=== PATIENT | male | born 1965 | race Caucasian/White ===

== ENCOUNTER → 2020-03-09 11:46 | Outpatient (BNVA) | payer BC, SELFPAY | PROVIDERS: Visit Provider Specialist | DX: M79.641 Pain in right hand (principal); M79.642 Pain in left hand; R20.0 Anesthesia of skin; R20.2 Paresthesia of skin | CPT/HCPCS: 95910 ==

== ENCOUNTER → 2021-02-09 10:07 | Outpatient (BNVA) | payer BC, SELFPAY | PROVIDERS: PCP Nurse Practitioner Family; Referring Provider Nurse Practitioner Family; Visit Provider Urology | DX: R79.89 Other specified abnormal findings of blood chemistry (principal); N52.9 Male erectile dysfunction, unspecified | CPT/HCPCS: 81003; 84403 ==

== ENCOUNTER 2021-05-25 07:21 | Outpatient (CLI) | payer BC, SELFPAY ==
[2021-05-25 07:40] VITALS: BMI 27.8
--- NOTE | 2021-05-25 08:30 | ECG_ITS ---
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 Baseline heart rate was 77 beats per minute. Baseline blood pressure was 126/95 millimeters of mercury. Target heart rate was 162 beats per minute. Maximum heart rate achieved was 139, which was 85 % of the target heart rate. Maximum blood pressure was 182/119 millimeters of mercury. Total exercise time was 5 minutes 54 seconds. Maximum METs achieved was 7.0, maximum VO2 was 24.5. The reason for ending the test was maximum effort achieved. The patient complained of shortness of breath during the stress test, which then resolved at the end of the test. ELECTROCARDIOGRAM: BASELINE: Showed sinus rhythm, normal axis, no significant ST-T changes at the baseline noted. EXERCISE: At the peak exercise level, no significant ST-T changes suggestive of ischemia noted. RECOVERY: During the recovery period, heart rate dropped appropriately. PVCs noted, no significant ST-T changes in the recovery suggestive of ischemia noted. CONCLUSION: 1. Exercise capacity fair. 2. Heart rate response was appropriate. 3. Blood pressure response was appropriate. 4. Symptoms not suggestive of ischemia. 5. Electrocardiogram portion of the stress test was not suggestive of ischemia. 6. Nuclear scan will be documented separately. Electronically Signed On 05-26-2021 21:19:14 CDT by AZUL HAYNES [id number]
--- NOTE | 2021-05-25 08:31 | NMCV_ITS ---
NM wing perf SPECT r/s* [id number] Ramakrishna Valdivia Age: 56 Gender: M : 1965 Exam Date: 05/25/2021 09:08 Ordering Phys: Aleks Barkley NP Technologist: ALONDRA Moody Exam Location: [facility] Indications: DYSPNEA ON EXERTION STRESS TEST Please see separate stress test report in [facility] for full findings IMAGE PROTOCOL Rest/Stress 1 Exercise Day Radiopharmaceutical Dose (mCi) Administration Site Administered by Rest: Tc-99m 10.7 IV ALONDRA Garcia Sestamibi Stress:Tc-99m 32.7 IV ALONDRA Garcia Sestamibi Rest: 25-May-2021 60 Discovery 630 Stress: 25-May-2021 30 Discovery 630 Radiopharmaceutical was injected at 85 % maximum heart rate. Images obtained in supine and prone position. SPECT RESULTS Technical Quality: Excellent Raw Data Analysis: Normal Image Corrections: No attenuation or motion correction applied Summed Stress Score: 0 Summed Rest Score: 1 Summed Difference Score: 0 PERFUSION FINDINGS Medium-sized area of persistent decrease tracer uptake noted in basal to mid inferior wall in the absence of wall motion abnormality could be an artifact. FUNCTIONAL RESULTS (calculated via Gated SPECT) Stress Image LV EF (%): 80 Stress EDV (mL):88 TID: 1.03 Stress ESV (mL):18 Rest Image LV EF (%): 80 FUNCTIONAL FINDINGS: There is normal left ventricular systolic function. IMPRESSIONS This study is negative for ischemia. EKG segment will be documented separately. Connie Bledsoe MD (Electronically Signed) Final Date: 25 May 2021 13:21 S
[2021-05-25 09:59] VITALS: BP 138/89; PULSE 94
== END 2021-05-25 07:22 | disposition home or self-care (01) ==
LOC: CDL 07:24
PROVIDERS: PCP Nurse Practitioner Family; Visit Provider Nurse Practitioner Family
DX: R06.09 Other forms of dyspnea (principal)
CPT/HCPCS: 78452; 93017; A9500

== ENCOUNTER → 2021-10-17 15:35 | Outpatient (BNVA) | payer BC, SELFPAY | PROVIDERS: PCP Nurse Practitioner Family; Visit Provider Urology | DX: R79.89 Other specified abnormal findings of blood chemistry (principal) | CPT/HCPCS: 81003; 84403 ==

== ENCOUNTER 2022-03-14 09:51 | Outpatient (CLI) | payer BC, SELFPAY ==
--- NOTE | 2022-03-14 10:16 | XRR_ITS ---
PROCEDURE INFORMATION: Exam: XR Lumbosacral Spine Exam date and time: 03/14/2022 10:17 AM Age: 57 years old Clinical indication: Low back pain; Patient HX: No known injury; Additional info: Acute low back pain TECHNIQUE: Imaging protocol: Radiologic exam of the lumbosacral spine. Views: 4 or 5 views. COMPARISON: CT kidney stone [id number] 10/02/2016 7:29 PM FINDINGS: Bones/joints: No fracture, malalignment or acute abnormalities are seen. Chronic degenerative changes are present in the lower lumbar facet joints with narrowing sclerosis and mild hypertrophy. There is mild narrowing of the L5-S1 disc space. Soft tissues: Unremarkable. XR/XR lumbar spine min 4V [id number] IMPRESSION: Chronic degenerative changes. No acute abnormality.
== END 2022-03-14 09:52 | disposition home or self-care (01) ==
LOC: RAD 09:52
PROVIDERS: PCP Nurse Practitioner Family; Visit Provider Nurse Practitioner Family
DX: M54.50 Low back pain, unspecified (principal)
CPT/HCPCS: 72110

== ENCOUNTER 2022-04-17 09:57 | Outpatient (CLI) | payer BC, SELFPAY ==
--- NOTE | 2022-04-17 10:17 | MR_ITS ---
WS: [id number] MRI LUMBAR SPINE NONCONTRAST HISTORY: LOW BACK PAIN, ACUTE COMPARISON: 11/24/2008 and 03/14/2022 TECHNIQUE: Sagittal and axial multisequence imaging is submitted. Moderate increase in thoracic kyphosis. Degenerative disc disease and osteophytosis in the cervical a nd thoracic spine. No high-grade cord compression. Normal lumbar alignment. No fracture. Small amount of marrow edema in the LEFT lateral L5 inferior en dplate. Mild disc space narrowing and desiccation throughout the lumbar spine. Conus terminates normally at L1-2 disc level. Disc protrusion on the LEFT at T11-T12 is no longer present. L1-L2: Mild annular disc bulge. No stenosis. Mild facet arthritis. L2-L3: Mild annular disc bulge. No stenosis. Mild facet arthritis. L3-L4: Mild bilateral facet arthritis, slightly greater on the RIGHT. No stenosis. L4-L5: Mild annular disc bulging with no focal disc protrusion. Mild bilateral facet joint arthritis, RIGHT greater than LEFT. No significant stenosis. L5-S1: Moderate diffuse annular disc bulging. Disc bulging has progressed since the prior study. More focal disc protrusion is broad-based extending into the LEFT subarticular recess and foramen. There is contact on the LEFT L5 and S1 nerve roots. Disc bulges into the RIGHT foramen with only mild conta ct on the RIGHT L5 nerve root. Moderate bilateral facet joint arthritis contributing to the foraminal narrowing. Nerve roots are becoming clumped within the periphery of the thecal sac. MR/MR lumbar spine wo con* [id number] IMPRESSION: 1. Mild progression of degenerative disc disease and facet arthritis since 200 9. 2. Diffuse moderate diffuse annular disc bulging at L5-S1 with new broad-based disc protrusion extending into the LEFT subarticular recess and foramen causin g stenosis and encroachment upon the LEFT L5 and S1 nerve roots. 3. Bilateral moderate facet joint arthritis at L5-S1 with mild encroachment up on the RIGHT L5 nerve root at L5-S1. 4. Mild bilateral facet joint arthritis, RIGHT greater than LEFT at L4-5.
== END 2022-04-17 09:58 | disposition home or self-care (01) ==
PROVIDERS: PCP Nurse Practitioner Family; Visit Provider Nurse Practitioner Family
DX: M54.50 Low back pain, unspecified (principal)
CPT/HCPCS: 72148

== ENCOUNTER → 2022-06-27 13:53 | Outpatient (BNVA) | payer BC, SELFPAY | PROVIDERS: PCP Nurse Practitioner Family; Visit Provider Physician Assistant | DX: M47.27 Other spondylosis with radiculopathy, lumbosacral region (principal) | CPT/HCPCS: 72110 ==

== ENCOUNTER 2022-07-20 10:47 | Emergency (ER) | payer BC, SELFPAY ==
[2022-07-20] VITALS (23 sets, daily range): BP systolic 88–146; BP diastolic 65–97; PULSE 90–102; RESP 15–26; TEMP 36.3; O2SAT 86–98; BMI 30.4
--- NOTE | 2022-07-20 11:21 | W.ED.EXTPRO ---
HPI - Extremity Problem General: Chief complaint: Extremity Injury, Lower Stated complaint: right foot injury Time Seen by Provider: 07/20/22 11:21 History of Present Illness: Mr. Valdivia is a 57-year-old 57-year-old gentleman without significant history presenting to the emergency department due to fall with ankle injury. He reports being at his baseline health yesterday and does not recall exactly what happened. 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 He does not recall getting into the house but woke up with recollection of being on the floor with ankle pain. This was last night. He has been unable to ambulate since that time. He has moderate to severe intensity pain moving his right ankle. Obvious deformity and external rotation noted. Denies any numbness or tingling. Denies frequent history of syncope. No other specific changes in health, exacerbating, or alleviating factors identified. Onset (ago): hour(s) Pain Consistency: constant Location: right and lower extremity Quality: stabbing, aching and sharp Radiation: none Relieving factors: immobilization Exacerbating factors: range of motion, weight bearing, walking and palpation Associated symptoms: Reports no associated symptoms Review of Systems General: Reports: 10 or more systems reviewed and unremarkable except in HPI and below PFSH ED PFSH: Medical History COPD (chronic obstructive pulmonary disease) Erectile dysfunction Hyperlipidemia Hypertension Hypothyroidism Low testosterone Family History Mother , AT AGE 69 LUNG CANCER/KIDNEY/BRAIN TUMOR Cancer Father CAD (coronary artery disease) Other Diabetes Social History Smoking and tobacco status: former smoker Alcohol intake: current Alcohol intake frequency: few times a month Marital status: Current occupational status: employed History of recent travel: No Physical Exam Const: COMMON NORMALS: alert GENERAL APPEARANCE: cooperative and well developed HENMT: COMMON NORMALS: normocephalic HEAD & SCALP: normocephalic OTHER: Mild abrasion without active bleeding to left forehead. No hines signs or raccoon eyes. No otorrhea or rhinorrhea. Jaw alignment normal. Dentition baseline. No obvious bony step-offs. No septal hematoma. No evidence of ocular entrapment. Eye: COMMON NORMALS: conjunctivae normal CONJUNCTIVA: Yes conjunctivae normal SCLERA: sclerae normal Neck/C-Spine: COMMON NORMALS: supple GENERAL: Yes trachea midline Resp: COMMON NORMALS: clear to auscultation bilaterally EFFORT & INSPECTION: Yes able to speak in complete sentences AUSCULTATION: clear to auscultation bilaterally Cardio: COMMON NORMALS: regular rate and regular rhythm RATE: regular rate RHYTHM: regular rhythm GI: COMMON NORMALS: Soft to palpation PALPATION: Yes Soft to palpation and No Tenderness to palpation present (GI) Extremity: NARRATIVE EXTREMITY EXAM: Obvious external rotation deformity to the right ankle with hematoma/contusion/ecchymosis. Cap refills present, due to swelling diminished palpable pulses DP PT. Patient reports inability to move toes, sensory intact. There are overlying skin changes without luis acute fracture. GENERAL: Yes normal exam except as noted and No edema Neuro: COMMON NORMALS: moves all extremities SENSORIUM/ORIENTATION: Yes alert and No Orientation impaired Psych: COMMON NORMALS: mental status grossly normal and Normal thought process present THOUGHT PROCESS: Normal thought process present Procedures Orthopedic Fracture Reduction Fracture #1: Time Out Performed: Yes Side: right Fracture Reduction Location: tibia and fibula Analgesia: procedural sedation Technique: direct manipulation Post Reduction X-rays Demonstrate: acceptable reduction Post-reduction neuro exam: intact Post-reduction vascular exam: intact Splint Applied: Yes Patient Tolerated Procedure: well and no complications Orthopedic Joint Reduction Joint #1: Time Out Performed: Yes Side: right Joint Reduction Location: ankle Analgesia: procedural sedation Technique used: direct manipulation Post-reduction neuro exam: intact Post-reduction vascular: intact Post Reduction X-Ray Obtained: Yes Post Reduction X-Ray Results: reduced Splint Applied: Yes Patient Tolerated Procedure: well and no complications Procedural Sedation ASA Class: II Time of Last PO Intake: 08:00 Preparation: high school home economics teacher applied, pulse oximeter, supplemental O2 applied, suction/airway equipment at bedside and IV secured IV Propofol dose (mg): 150 Patient Tolerated Procedure: well and no complications Complications: none Interventions: oxygen applied and airway repositioned Course Vital Signs: Vital signs: Vital Signs Temperature 97.4 F L 07/20/22 11:12 Pulse Rate 98 07/20/22 15:25 Respiratory Rate 16 07/20/22 15:25 Blood Pressure 108/74 07/20/22 15:25 Pulse Oximetry 95 07/20/22 15:25 Oxygen Delivery Me thod 07/20/22 11:12 MDM - Extremity (Nontraumatic) Medical Decision Making 57-year-old gentleman presenting due to fall today. Physical exam performed and most notable for finding of obvious ankle injury mental status is normal with GCS 15. X-ray with fracture dislocation of ankle. Patient consented for procedural sedation and closed reduction. Procedure performed as above, patient tolerated procedure well with intact CMS after procedure/splinting. Given loss of consciousness and active amnesia immediately warranted. CT head with acute small right subdural hematoma without mass-effect as well as subdural blood on the falx and tentorium. Cervical spine without acute fracture. EKG notable for sinus rhythm, no STEMI. Labs notable for minimal leukocytosis, normal hemoglobin. Metabolic end with mild hyponatremia. Delta troponin at 2 hours is negative. Given intracranial hemorrhage patient requires evaluation by trauma service and neurosurgery. The results of ED evaluation were discussed with the patient including plan for transfer due to requirement for level of care not available if discharged to prevent significant worsening/deterioration. Patient agreeable with plan. Discussed with Dr Carpenter at [facility] in [facility] and patient was accepted as a transfer to the ED. He left the emergency department in satisfactory condition. Medical Records I reviewed the patient's medical records. Lab Data I reviewed the patient's lab results. 07/20/22 11:53 07/20/22 11:53 Radiology Impressions Chest X-Ray 07/20/22 11:34 IMPRESSION: 1. No acute cardiopulmonary finding. Tibia/Fibula X-Ray 07/20/22 11:34 IMPRESSION: 1. Talotibial dislocation with displaced distal fibular fracture as indicated above. Ankle X-Ray 07/20/22 12:35 IMPRESSION: 1. Reduction of talotibial dislocation as noted above. 2. Improved fracture position of the fractured lower fibula as noted above. There is still some displacement of the fracture. Cervical Spine CT 07/20/22 13:06 IMPRESSION: 1. No acute cervical spine fracture. 2. Multilevel facet joint arthritis. Most significant at C4-5 and C5-6. Head CT 07/20/22 13:06 IMPRESSION: 1. Acute, small RIGHT subdural hematoma without significant mass effect. 2. There is additional subdural blood along the interhemispheric falx and over the tentorium. 3. No intraventricular blood. 4. No midline shift or mass effect. Notified Dedrick Moore MD at 07/20/2022 1:57 PM. Laboratory Results WBC 11.3 10^3/uL (4.0-10.0) H 07/20/22 11:53 RBC 4.36 10^6/uL (4.1-5.3) 07/20/22 11:53 Hgb 14.4 g/dL (11.7-16.6) 07/20/22 11:53 Hct 42.1 % (42.0-52.0) 07/20/22 11:53 MCV 96.6 fl (80-94) H 07/20/22 11:53 MCH 33.0 pg (28.0-34.0) 07/20/22 11:53 MCHC 34.2 g/dL (30.0-36.0) 07/20/22 11:53 RDW 14.0 % (12.1-15.1) 07/20/22 11:53 Plt Count 267 10^3/cmm (130-400) 07/20/22 11:53 MPV 9.9 fL (7.4-10.4) 07/20/22 11:53 Neut % (Auto) 82.1 % 07/20/22 11:53 Lymph % (Auto) 10.8 % 07/20/22 11:53 Mason % (Auto) 6.5 % 07/20/22 11:53 Eos % (Auto) 0.2 % 07/20/22 11:53 Baso % (Auto) 0.2 % 07/20/22 11:53 Neut # (Auto) 9.29 10^3/uL (1.8-7.7) H 07/20/22 11:53 Lymph # (Auto) 1.2 10^3/uL (0.8-4.8) 07/20/22 11:53 Mason # (Auto) 0.7 10^3/uL (0.2-0.9) 07/20/22 11:53 Eos # (Auto) 0.0 10^3/uL (0.0-0.8) 07/20/22 11:53 Baso # (Auto) 0.0 10^3/uL (0.0-0.1) 07/20/22 11:53 Nucleated RBC % (auto) 0 % 07/20/22 11:53 Nucleated RBCs # 0.0 /100WBC 07/20/22 11:53 Sodium 133 mmol/L (136-145) L 07/20/22 11:53 Potassium 4.6 mmol/L (3.5-5.1) 07/20/22 11:53 Chloride 97 mmol/L (98-107) L 07/20/22 11:53 Carbon Dioxide 22 mmol/L (22-29) 07/20/22 11:53 Anion Gap 18.6 (5-19) 07/20/22 11:53 BUN 10 mg/dL (6-20) 07/20/22 11:53 Creatinine 0.8 mg/dL (0.7-1.2) 07/20/22 11:53 GFR Calculation 98.9 mL/min (90-130) 07/20/22 11:53 Glucose 85 mg/dL (65-115) 07/20/22 11:53 Calculated Osmolality 274 mOsm/kg (285-295) L 07/20/22 11:53 Calcium 9.0 mg/dL (8.5-10.5) 07/20/22 11:53 Total Bilirubin 0.5 mg/dL (0.15-1.2) 07/20/22 11:53 AST 26 U/L (0-40) 07/20/22 11:53 ALT 23 U/L (0-41) 07/20/22 11:53 Alkaline Phosphatase 63 U/L (40-130) 07/20/22 11:53 Troponin T Baseline 7 ng/L (0-15) 07/20/22 11:53 Troponin T 120 Minute 6.00 ng/L (0-15) 07/20/22 13:00 Delta Troponin T -1.0 ABS# (0-10) L 07/20/22 13:00 Total Protein 6.8 g/dL (6.6-8.7) 07/20/22 11:53 Albumin 4.2 g/dL (3.5-5.2) 07/20/22 11:53 Globulin 2.6 g/dL (1.3-4.6) 07/20/22 11:53 TSH 0.64 uIU/mL (0.27-4.20) 07/20/22 11:53 Discharge Plan Discharge Patient Disposition: Xfer Short-Term Hosp Clinical Impression: Fall, Closed head injury with loss of consciousness of unknown duration, Fracture dislocation of ankle, Acute subdural hematoma Condition: Stable Referrals: Aleks Barkley NP [Primary Care Provider] - Coding Level of Care Code ED Shipping Specialist for Chg Fwd Exam Comprehensive
--- NOTE | 2022-07-20 11:34 | XR_ITS ---
WS: [email or web address] Exam: XR tibia fibula RT 2V [id number] Date/Time of Exam: 07/20/2022 11:51 AM Reason For Exam: fall There is anterior and medial dislocation of the distal tibia. There is a displaced oblique fracture o f the lower fibula with the posterior displacement and angulation of the lower fragment and side-to-s bobo apposition. No other fractures are identified. The remainder of the tibia and fibula are intact. XR/XR tibia fibula RT 2V [id number] IMPRESSION: 1. Talotibial dislocation with displaced distal fibular fracture as indicated a mateusz.
--- NOTE | 2022-07-20 11:34 | XR_ITS ---
WS: [email or web address] Exam: XR ankle RT min 3V* [id number] Date/Time of Exam: 07/20/2022 11:51 AM Reason For Exam: fall, deformity There is anterior medial dislocation of the tibia upon the talar dome. There is an oblique fracture o f the distal fibula with the anterior displacement of the fibular shaft and overriding. Soft tissue s welling about the ankle. No other acute fractures are seen. XR/XR ankle RT min 3V* [id number] IMPRESSION: 1. Anterior medial dislocation of the distal tibia. 2. Angulated displaced fracture of the lower fibula as noted above.
--- NOTE | 2022-07-20 11:34 | XR_ITS ---
WS: [email or web address] Exam: XR chest 1V portable [id number] Date/Time of Exam: 07/20/2022 11:51 AM Reason For Exam: syncope Comparison 06/19/2016. The lungs are fully expanded and clear. Normal cardiomediastinal silhouette. Bony structures are inta ct. No pleural effusions. XR/XR chest 1V portable [id number] IMPRESSION: 1. No acute cardiopulmonary finding.
--- NOTE | 2022-07-20 11:44 | ECG_ITS ---
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 Measurements Intervals [place] Rate: 101 P: 37 WV: 128 QRS: 28 QRSD: 88 T: 29 QT: 329 QTc: 427 Interpretive Statements SINUS TACHYCARDIA No previous ECG available for comparison Electronically Signed On 07-20-2022 12:55:49 WIND TURBINE MECHANICAL ENGINEER by Panfilo Vo M.D. [email or web address]
[2022-07-20] MEDS: morphine 4 mg/mL SDV 1 mL IVP (11:50)
[2022-07-20] MEDS: ondansetron 2 mg/ML SDV 2 mL 4 MG IVP (11:51)
[2022-07-20 12:00] LABS: Basophils % 0.2 %; Eosinophils % 0.2 %; Hematocrit 42.1 % (42.0-52.0); Hemoglobin 14.4 g/dL (11.7-16.6); Lymphocytes # 1.2 10^3/uL (0.8-4.8); Lymphocytes % 10.8 %; Mean Corpuscular HGB Conc 34.2 g/dL (30.0-36.0); Mean Corpuscular Volume 96.6 fl (80-94); Mean Platelet Volume 9.9 fL (7.4-10.4); Monocytes # 0.7 10^3/uL (0.2-0.9); Monocytes % 6.5 %; Neutrophils # 9.29 10^3/uL (1.8-7.7); Neutrophils % 82.1 %; Nucleated Red Blood Cells % 0 %; Platelet Count 267 10^3/cmm (130-400); Red Blood Count 4.36 10^6/uL (4.1-5.3); White Blood Count 11.3 10^3/uL (4.0-10.0)
[2022-07-20 12:31] LABS: Troponin(5th) Baseline 7 ng/L (0-15)
--- NOTE | 2022-07-20 12:35 | XR_ITS ---
WS: [email or web address] Exam: XR ankle RT 2V [id number] Date/Time of Exam: 07/20/2022 12:38 PM Reason For Exam: post reduction Comparison 07/20/2022 1159 hours. Previously noted talotibial dislocation has been reduced. There is still some medial displacement of the tibia upon the talar dome. The fibular fracture shows improved position. There is still some ante rior displacement of the fibular shaft in relationship to the distal fracture fragment. A posterior f iberglass splint noted. XR/XR ankle RT 2V [id number] IMPRESSION: 1. Reduction of talotibial dislocation as noted above. 2. Improved fracture position of the fractured lower fibula as noted above. The re is still some displacement of the fracture.
[2022-07-20 12:41] LABS: Alanine Aminotransferase 23 U/L (0-41); Albumin Level 4.2 g/dL (3.5-5.2); Alkaline Phosphatase 63 U/L (40-130); Anion Gap 18.6 (5-19); Aspartate Amino Transferase 26 U/L (0-40); Blood Urea Nitrogen 10 mg/dL (6-20); Carbon Dioxide 22 mmol/L (22-29); Chloride 97 mmol/L (98-107); Globulin 2.6 g/dL (1.3-4.6); Glomerular Filtration Rate 98.9 mL/min (90-130); Glucose 85 mg/dL (65-115); Osmolality Calculated 274 mOsm/kg (285-295); Potassium 4.6 mmol/L (3.5-5.1); Sodium 133 mmol/L (136-145); Thyroid Stimulating Hormone 0.64 uIU/mL (0.27-4.20); Total Bilirubin 0.5 mg/dL (0.15-1.2); Total Protein 6.8 g/dL (6.6-8.7)
--- NOTE | 2022-07-20 12:45 | PC.NURSE ---
Addendum entered by Alex Castellanos RN 07/20/22 13:06: 1305 rass 0 pt back to baseline orientation and vital status. Original Note: time out 1245 proo 50mg 1246 propofal 50 1248 rass -2 1249 prop 40 mg 1250 rass +1 rass -4 1251 reduction complete 1252 rass-4 1255 1300 rass -2 splinting complete cms intact at this time
--- NOTE | 2022-07-20 13:06 | CT_ITS ---
WS: [email or web address] CT HEAD NONCONTRAST HISTORY: syncope, recent fall. TECHNIQUE: Contiguous axial imaging performed through the brain in 2.5 mm imaging. Bone and soft tiss ue windows. Sagittal and coronal reformats reviewed. All CT scans at [facility] use at least one of these dose optimization techniques: automated exposure control; mA and/or kV adjustment per pa tient size (includes targeted exams where dose is matched to clinical indication); or iterative recon struction. DLP: 1253.80 mGy.cm COMPARISON: None available. Acute extra-axial blood over the RIGHT cerebrum. Blood extends from near the vertex over the RIGHT pa rietal, frontal and temporal lobes. The largest collection of blood measures 2.2 x 0.6 cm over the po sterior RIGHT parietal lobe. Mildly convex in appearance but probably subdural in location. Very slig ht mass effect upon the parietal lobe. There is a additional acute blood extending along the interhem ispheric falx. Small amount of blood extends over the tentorium, bilateral. No intraventricular blood . No significant cerebral atrophy. No prior infarct. No blood in the interpeduncular cistern. Ventricles: Normal size with no hydrocephalus. No inferior displacement of cerebellar tonsils. Paranasal sinuses: As visualized are clear. Mastoid air cells: Well pneumatized. Calvarium and scalp: No skull fracture. No large cysts scalp hematoma. There is mild scalp thickening along the posterior LEFT parietal bone which may be the site of trauma. CT/CT head wo con* [id number] IMPRESSION: 1. Acute, small RIGHT subdural hematoma without significant mass effect. 2. There is additional subdural blood along the interhemispheric falx and over the tentorium. 3. No intraventricular blood. 4. No midline shift or mass effect. Notified Dedrick Moore MD at 07/20/2022 1:57 PM.
--- NOTE | 2022-07-20 13:06 | CT_ITS ---
WS: [email or web address] CT CERVICAL SPINE HISTORY: syncope TECHNIQUE: Contiguous 2.0 mm axial imaging performed through the entire cervical spine. Sagittal and coronal reformats also performed. All CT scans at [facility] use at least one of these dose o ptimization techniques: automated exposure control; mA and/or kV adjustment per patient size (include s targeted exams where dose is matched to clinical indication); or iterative reconstruction. DLP: 1253.80 mGy.cm COMPARISON: None available. Very slight increase in the cervical lordosis. No fractures. Mild facet joint arthritis. Craniocervic al junction and the lateral masses of C1 and C2 are normally aligned. C2-C3: Normal. C3-C4: Mild osteophytic ridging and bilateral foraminal narrowing. C4-C5: Moderate osteophytic ridging with osteophytes encroaching upon the ventral thecal sac and neur oforamina. Moderate central and foraminal stenosis. C5-C6: Mild osteophytic ridging and facet joint arthritis. Moderate foraminal stenosis. C6-C7: Osteophytic ridging and moderate foraminal stenosis. C7-T1: Normal. Soft tissues are normal. Lung apices are clear. CT/CT cervical spin wo con* [id number] IMPRESSION: 1. No acute cervical spine fracture. 2. Multilevel facet joint arthritis. Most significant at C4-5 and C5-6.
[2022-07-20] MEDS: propofol 10 mg/mL SDV 20 mL IVP (13:07)
[2022-07-20] MEDS: sodium chloride 0.9% 1,000 ML 75 ML IV (13:07)
--- NOTE | 2022-07-20 14:04 | ECG_ITS ---
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 Measurements Intervals [place] Rate: 91 P: 50 FL: 148 QRS: 19 QRSD: 90 T: 8 QT: 346 QTc: 427 Interpretive Statements SINUS RHYTHM Compared to ECG 07/20/2022 11:44:57 Sinus tachycardia no longer present Electronically Signed On 07-21-2022 7:51:29 HEALTH CARE TECHNICIAN by Panfilo Vo M.D. [id number]
--- NOTE | 2022-07-20 14:32 | PC.NURSE ---
report called to Yarely moncada RN
== END 2022-07-20 15:28 | disposition short-term general hospital (02) ==
PROVIDERS: Emergency Provider Emergency Medicine; PCP Nurse Practitioner Family
DX: S06.5X9A Traumatic subdural hemorrhage with loss of consciousness of unspecified duration, initial encounter (principal); S82.831A Other fracture of upper and lower end of right fibula, initial encounter for closed fracture; W19.XXXA Unspecified fall, initial encounter
CPT/HCPCS: 27788; 27840; 36415; 70450; 71045; 72125; 73590; 73600; 73610; 80053; 84443; 84484; 85025; 93005; 94799; 96361; 96374; 96375; 99285; 99291; J2270; J2405; J2704; J7030

== ENCOUNTER 2022-10-13 01:12 | Inpatient (IN) | payer OTHER, SELFPAY ==
[2022-10-13 01:14] VITALS: BP 164/107; PULSE 83; RESP 20; TEMP 36.6; O2SAT 97; BMI 30.4
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
[2022-10-13 01:47] LABS: Basophils # 0.1 10^3/uL (0.0-0.1); Basophils % 0.7 %; Eosinophils # 0.1 10^3/uL (0.0-0.8); Eosinophils % 0.7 %; Hematocrit 49.1 % (42.0-52.0); Hemoglobin 16.5 g/dL (11.7-16.6); Lymphocytes # 2.6 10^3/uL (0.8-4.8); Lymphocytes % 36.9 %; Mean Corpuscular HGB Conc 33.6 g/dL (30.0-36.0); Mean Corpuscular Hemoglobin 31.7 pg (28.0-34.0); Mean Corpuscular Volume 94.2 fl (80-94); Mean Platelet Volume 9.4 fL (7.4-10.4); Monocytes # 0.5 10^3/uL (0.2-0.9); Monocytes % 6.6 %; Neutrophils # 3.91 10^3/uL (1.8-7.7); Neutrophils % 54.8 %; Nucleated Red Blood Cells % 0 %; Platelet Count 239 10^3/cmm (130-400); Red Blood Count 5.21 10^6/uL (4.1-5.3); Red Cell Distribution Width 13.8 % (12.1-15.1); White Blood Count 7.1 10^3/uL (4.0-10.0)
[2022-10-13 02:07] LABS: Alanine Aminotransferase 22 U/L (0-41); Albumin Level 4.6 g/dL (3.5-5.2); Alcohol Level 241 mg/dL (0-10); Alkaline Phosphatase 102 U/L (40-130); Anion Gap 16.9 (5-19); Aspartate Amino Transferase 21 U/L (0-40); Blood Urea Nitrogen 9 mg/dL (6-20); Calcium 9.5 mg/dL (8.5-10.5); Carbon Dioxide 27 mmol/L (22-29); Chloride 100 mmol/L (98-107); Globulin 3.5 g/dL (1.3-4.6); Glomerular Filtration Rate 86.4 mL/min (90-130); Glucose 108 mg/dL (65-115); Osmolality Calculated 289 mOsm/kg (285-295); Potassium 3.9 mmol/L (3.5-5.1); Sodium 140 mmol/L (136-145); Total Bilirubin 0.3 mg/dL (0.15-1.2); Total Protein 8.1 g/dL (6.6-8.7)
[2022-10-13 02:13] LABS: Amphetamines Screen Urine Negative (Negative); Barbiturates Screen Urine Negative (Negative); Benzodiazepines Screen Urine Negative (Negative); Cocaine Screen Urine Negative (Negative); Opiate Screen Urine Negative (Negative); PCP Screen Urine Negative (Negative); THC Screen Urine Negative (Negative)
[2022-10-13 02:16] LABS: Acetaminophen < 5.0 ug/mL (10-30); Salicylate < 0.3 mg/dL (3-10)
[2022-10-13] MEDS: ziprasidone 20 mg/mL SDV IM (02:23)
[2022-10-13] MEDS: LORazepam 2 mg/mL INJ 1 mL IM (02:23)
--- NOTE | 2022-10-13 02:38 | PC.NURSE ---
96 hour Hold rights read to patient & questions have been answered to patient's satisfaction. A copy of the rights have been given to patient. Joe Carranza, , was present at bedside.
[2022-10-13 04:00] VITALS: BP 125/79; PULSE 98; O2SAT 94
[2022-10-13 04:46] VITALS: BP 123/83; PULSE 109; RESP 18; TEMP 36.4; O2SAT 95
[2022-10-13 06:00] VITALS: RESP 16
[2022-10-13] MEDS: amlodipine 5 mg Tablet PO (10:04)
[2022-10-13] MEDS: folic acid 1 mg Tablet PO (10:04)
[2022-10-13] MEDS: lisinopril 20 mg Tablet PO (10:05)
[2022-10-13] MEDS: pantoprazole DR 40 mg Tablet PO (10:05)
[2022-10-13] MEDS: thiamine 100 mg Tablet PO (10:05)
[2022-10-13] MEDS: multivitamin therapeutic Tablet 1 TAB PO (10:05)
[2022-10-13] MEDS: venlafaxine ER (24HR) 75 mg Capsule PO (10:05)
[2022-10-13] MEDS: levothyroxine 150 mcg Tablet PO (10:05)
--- NOTE | 2022-10-13 10:10 | PC.NURSE ---
Medications administration delay due to patient being very tired, agreeing to come to the nurses' station and take his medications, and falling back asleep before he could come up. This RN made the decision to take them to his bedside where he took them without any issues.
[2022-10-13 14:00] VITALS: BP 122/81; PULSE 101; RESP 18; TEMP 36.8; O2SAT 92
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
[2022-10-13 22:00] VITALS: BP 114/79; PULSE 94; RESP 18; TEMP 37.2; O2SAT 94
[2022-10-14 06:00] VITALS: BP 106/70; PULSE 78; RESP 15; TEMP 37.1; O2SAT 94
[2022-10-14] MEDS: amlodipine 5 mg Tablet PO (08:20)
[2022-10-14] MEDS: lisinopril 20 mg Tablet PO (08:20)
[2022-10-14] MEDS: venlafaxine ER (24HR) 75 mg Capsule 150 MG PO (08:20)
[2022-10-14] MEDS: multivitamin therapeutic Tablet 1 TAB PO (08:20)
[2022-10-14] MEDS: pantoprazole DR 40 mg Tablet PO (08:21)
[2022-10-14] MEDS: thiamine 100 mg Tablet PO (08:21)
[2022-10-14] MEDS: folic acid 1 mg Tablet PO (08:21)
[2022-10-14] MEDS: levothyroxine 150 mcg Tablet PO (08:21)
[2022-10-14 09:00] VITALS: PULSE 101; RESP 16; O2SAT 92
[2022-10-14] MEDS: ipratropium-albuterol 3 mL Neb INHALATION (09:56)
[2022-10-14] MEDS: naproxen 500 mg Tablet PO (10:02)
[2022-10-14 14:00] VITALS: BP 103/65; PULSE 107; RESP 17; TEMP 36.7; O2SAT 97
--- NOTE | 2022-10-14 19:45 | P.NPUPN_ITS ---
Subjective NPU Subjective: the patient is a 57-year-old white male with a history of depression and anxiety and likely PTSD admitted with suicidal ideation and homicidal ideation. Patient had admitted to significant alcohol use and reported having drank alcohol 2 days prior to admission. He had reported feeling somewhat more anxious although he stated that he felt better with the increase in venlafaxine 75 mg to 150 mg this morning. Patient had reported that he had been on the same dose of Effexor for several months and stated that he was in agreement with the change to help with managing anxiety and depression. He had reported motivation to return back to work. He had reported having normal desire to be around others and he continue isolating himself on the milieu. Mental Status Exam MSE Comments: Is casually dressed white male who appeared his stated age. His gait was within normal limits. His hygiene was fair. There was no evidence of any abnormal involuntary motor movements tics or tremors appreciated. His mood was described as better. There was evidence of moderate psychomotor retardation. His affect was restricted in range and mood incongruent. There was no clear evidence of delusional thinking. He did not appear to be responding to internal stimuli. Speech was normal in regards to rate rhythm and prosody. His thought process was linear logical goal-directed. His thought content showed no evidence of active homicidal or suicidal ideation. His insight was poor. His judgment is poor. His impulse control appeared limited at this time. Vitals/I&O/Wt Last Vital Signs Temp 98.1 F 10/14/22 14:00 Pulse 107 H 10/14/22 14:00 Resp 17 10/14/22 14:00 BP 103/65 10/14/22 14:00 Pulse Ox 97 10/14/22 14:00 O2 Del Method 10/14/22 09:00 Weight last 48 hrs Weight 90.718 kg Data NPU 10/13/22 01:32 10/13/22 01:32 A&P Assessment and plan (1) Depression, unspecified: (2) Anxiety disorder, unspecified: Plan Patient is a 57-year-old white male admitted with depression anxiety and possible homicidal and suicidal ideation with no previous history of psychiatric hospitalization. He would likely benefit from continued inpatient psychiatric treatment.. 1.? Continue effexor xr at 150mg in am to target depression and anxiety. 2.? Continue every 15 minute checks for safety. 3.? Encourage individual, group and milieu therapy once he has engaged. 4.? Encourage sobriety treatment after discharge to the hospital care to which he is willing to commit.? Work on continuing previous plan for rehab. 5. Will attempt to gather collateral information. Involuntary Hold Information 96 Hour Hold: 96 Hour Involuntary Admission: Yes 96 Hour Hold Ending Date: 10/19/22 96 Hour Hold Ending Time: 01:36 Attestations NPU 2 Medical Necessity Statement*: Inpatient hospitalization is medically necessary and will be clinically appropriate at this time. ? We will monitor/initiate med ications and make changes as indicated with likely length of stay 5-7 days. Coding Level of Care Code Acute Code for g Fwd Diagnoses Depression, unspecified F32.A Anxiety disorder, unspecified F41.9
[2022-10-14 22:00] VITALS: BP 114/78; PULSE 103; RESP 18; TEMP 36.7; O2SAT 95
[2022-10-14] MEDS: prazosin 1 mg Capsule 2 MG PO (22:51)
[2022-10-15 06:00] VITALS: BP 100/67; PULSE 95; RESP 16; TEMP 36.7; O2SAT 95; BMI 30.4
[2022-10-15] MEDS: folic acid 1 mg Tablet PO (08:53)
[2022-10-15] MEDS: amlodipine 5 mg Tablet PO (08:53)
[2022-10-15] MEDS: multivitamin therapeutic Tablet 1 TAB PO (08:53)
[2022-10-15] MEDS: venlafaxine ER (24HR) 75 mg Capsule 150 MG PO (08:54)
[2022-10-15] MEDS: thiamine 100 mg Tablet PO (08:54)
[2022-10-15] MEDS: pantoprazole DR 40 mg Tablet PO (08:54)
[2022-10-15] MEDS: levothyroxine 150 mcg Tablet PO (08:54)
[2022-10-15] MEDS: lisinopril 20 mg Tablet PO (08:54)
[2022-10-15 09:00] VITALS: O2SAT 93
[2022-10-15 13:59] VITALS: BP 115/83; PULSE 89; RESP 18; TEMP 36.6; O2SAT 96
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
[2022-10-15] MEDS: naproxen 500 mg Tablet PO (18:55)
[2022-10-15 19:46] VITALS: BP 111/82; PULSE 82; RESP 15; TEMP 36.9; O2SAT 97
[2022-10-15] MEDS: prazosin 1 mg Capsule 2 MG PO (22:31)
[2022-10-16 06:00] VITALS: BP 97/61; PULSE 84; RESP 17; O2SAT 96
[2022-10-16] MEDS: folic acid 1 mg Tablet PO (08:36)
[2022-10-16] MEDS: venlafaxine ER (24HR) 75 mg Capsule 150 MG PO (08:36)
[2022-10-16] MEDS: pantoprazole DR 40 mg Tablet PO (08:36)
[2022-10-16] MEDS: multivitamin therapeutic Tablet 1 TAB PO (08:36)
[2022-10-16] MEDS: thiamine 100 mg Tablet PO (08:36)
[2022-10-16] MEDS: amlodipine 5 mg Tablet PO (08:37)
[2022-10-16] MEDS: levothyroxine 150 mcg Tablet PO (08:37)
[2022-10-16] MEDS: lisinopril 20 mg Tablet PO (08:37)
--- NOTE | 2022-10-16 13:47 | P.NPUPN_ITS ---
Subjective NPU Subjective: the patient is a 57-year-old white male with a history of depression and anxiety and likely PTSD admitted with suicidal ideation and homicidal ideation. Patient denied any suicidal thoughts at this time. He had reported that he had spoken with his and that he was interested in getting help. He had admitted to having significant PTSD related symptoms including anger issues, nightmares and reexperiencing phenomenon's. He reported that he struggled with identifying triggers to his exacerbations of his PTSD. He had reported depressed mood for several months and reported that his anxiety had been worse for an extended period of time. He had reported motivation to getting better and returning to work but stated that he continued to suffer with pain both in his legs and particularly in his back. Mental Status Exam MSE Comments: Is casually dressed white male who appeared his stated age. He was pleasant and cooperative on interview. His gait was within normal limits. His hygiene was fair. There was evidence of hypervigilance, There was no evidence of any abnormal involuntary motor movements tics or tremors appreciated. His mood was described as all right. His affect appeared restricted. There was no clear evidence of delusional thinking. There was evidence of moderate psychomotor retardation. He did not appear to be responding to internal stimuli. Speech was normal in regards to rate rhythm and prosody. His thought process was linear logical goal-directed. His thought content showed no evidence of active homicidal or suicidal ideation. His insight was i mproving. His judgment is poor. His impulse control appeared to be improving. Vitals/I&O/Wt Last Vital Signs Temp 98.4 F 10/15/22 19:46 Pulse 84 10/16/22 06:00 Resp 17 10/16/22 06:00 BP 97/61 10/16/22 06:00 Pulse Ox 96 10/16/22 06:00 O2 Del Method 10/15/22 09:00 Weight last 48 hrs Weight 96.797 kg Weight 90.718 kg Data NPU 10/13/22 01:32 10/13/22 01:32 A&P Assessment and plan (1) Depression, unspecified: (2) Anxiety disorder, unspecified: Plan Patient is a 57-year-old white male admitted with depression anxiety and possible homicidal and suicidal ideation with no previous history of psychiatric hospitalization. He would likely benefit from continued inpatient psychiatric treatment.. 1.? Continue effexor xr at 150mg in am to target depression and anxiety. Referral for [facility] services, PTSD treatment. 2.? Continue every 15 minute checks for safety. 3.? Encourage individual, group and milieu therapy once he has engaged. 4.? Encourage sobriety treatment after discharge to the hospital care to which he is willing to commit.? Work on continuing previous plan for rehab. 5. Will attempt to gather collateral information. Involuntary Hold Information 96 Hour Hold: 96 Hour Involuntary Admission: Yes 96 Hour Hold Ending Date: 10/19/22 96 Hour Hold Ending Time: 01:36 Attestations NPU Medical Necessity Statement*: Inpatient hospitalization is medically necessary and will be clinically appropriate at this time. ? We will monitor/initiate medications and make changes as indicated with likely length of stay 2-3 days. Coding Level of Care Code Acute Code for Chg Fwd Diagnoses Depression, unspecified F32.A Anxiety disorder, unspecified F41.9
[2022-10-16 14:00] VITALS: BP 102/64; PULSE 90; RESP 16; TEMP 36.9; O2SAT 95
[2022-10-16] MEDS: naproxen 500 mg Tablet PO (16:50)
[2022-10-16 19:41] VITALS: BP 131/78; PULSE 103; RESP 18; TEMP 36.3; O2SAT 98
[2022-10-16] MEDS: prazosin 1 mg Capsule 2 MG PO (20:41)
[2022-10-17 06:00] VITALS: BP 103/67; PULSE 90; RESP 16; TEMP 36.5; O2SAT 97
[2022-10-17] MEDS: levothyroxine 150 mcg Tablet PO (06:12)
[2022-10-17] MEDS: thiamine 100 mg Tablet PO (08:28)
[2022-10-17] MEDS: multivitamin therapeutic Tablet 1 TAB PO (08:28)
[2022-10-17] MEDS: lisinopril 20 mg Tablet PO (08:28)
[2022-10-17] MEDS: venlafaxine ER (24HR) 75 mg Capsule 150 MG PO (08:28)
[2022-10-17] MEDS: amlodipine 5 mg Tablet PO (08:28)
[2022-10-17] MEDS: pantoprazole DR 40 mg Tablet PO (08:28)
[2022-10-17] MEDS: folic acid 1 mg Tablet PO (08:28)
[2022-10-17 10:15] VITALS: BP 103/67; PULSE 90; RESP 16; TEMP 36.5; O2SAT 97
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
== END 2022-10-17 11:19 | disposition home or self-care (01) | DRG 881 ==
LOC: ER 02:30 → NP 02:47
PROVIDERS: Admitting Provider Psychiatry & Neurology Psychiatry; Emergency Provider Emergency Medicine; PCP Nurse Practitioner Family; Visit Provider Psychiatry & Neurology Psychiatry
DX: F32.A Depression, unspecified (principal); R45.851 Suicidal ideations; F10.10 Alcohol abuse, uncomplicated; R45.850 Homicidal ideations; F12.90 Cannabis use, unspecified, uncomplicated; F41.9 Anxiety disorder, unspecified; I10 Essential (primary) hypertension; E03.9 Hypothyroidism, unspecified; K21.9 Gastro-esophageal reflux disease without esophagitis; E78.5 Hyperlipidemia, unspecified; J44.9 Chronic obstructive pulmonary disease, unspecified; Z87.891 Personal history of nicotine dependence; F43.10 Post-traumatic stress disorder, unspecified
CPT/HCPCS: 80053; 80306; 80307; 85025; 94640; 96372; 97150; 97165; 99238; 99285; J2060; J3486

== ENCOUNTER → 2022-10-17 10:57 | Outpatient (BNVA) | payer OTHER, SELFPAY | PROVIDERS: PCP Nurse Practitioner Family; Visit Provider Urology | DX: N52.9 Male erectile dysfunction, unspecified (principal); R79.89 Other specified abnormal findings of blood chemistry | CPT/HCPCS: 99213 ==

== ENCOUNTER → 2022-10-19 09:09 | Outpatient (BNVA) | payer BC, SELFPAY | PROVIDERS: PCP Nurse Practitioner Family; Visit Provider Physician Assistant | DX: M51.27 Other intervertebral disc displacement, lumbosacral region (principal) | CPT/HCPCS: 99213 ==

== ENCOUNTER 2023-03-03 13:23 | Emergency (ER) | payer OTHER, SELFPAY ==
[2023-03-03 13:32] VITALS: BP 143/100; PULSE 72; RESP 18; TEMP 36.6; O2SAT 98; BMI 31.6
--- NOTE | 2023-03-03 14:38 | ED_ITS ---
HPI - Extremity Problem General: Chief complaint: Extremity Injury, Upper Stated complaint: RTshoulder/abdpain Time Seen by Provider: 03/03/23 14:31 History of Present Illness: 58-year-old male presents emergency department complaints of right shoulder and neck muscle pain that started approximately 7 days ago. He states his muscle feels like he is having a spasm in his upper right shoulder. He states that he is a patient at the [facility] and contacted them when his discomfort initially started. He states that he has been to the urgent care and they did provide him a steroid shot with minimal relief. He states that he does have chronic back pain and has been doing physical therapy for this. 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 Review of Systems General: Reports: 10 or more systems reviewed and unremarkable except in HPI and below Musc: Reports: back pain, extremity pain and joint stiffness Neuro: Denies: numbness in extremities, weakness in extremities or sensory changes PFSH ED PFSH: Medical History COPD (chronic obstructive pulmonary disease) Erectile dysfunction Hyperlipidemia Hypertension Hypothyroidism Low testosterone Family History Mother , AT AGE 69 LUNG CANCER/KIDNEY/BRAIN TUMOR Cancer Father CAD (coronary artery disease) Other Diabetes Social History Smoking and tobacco status: former smoker Alcohol intake: current Alcohol intake frequency: few times a month Marital status: Current occupational status: employed Physical Exam Const: COMMON NORMALS: no acute distress, average body habitus, patient oriented x3, no limitations, healthy appearing, alert and well nourished HENMT: COMMON NORMALS: normocephalic, atraumatic, hearing grossly normal bilaterally and moist oral mucous membranes HEAD & SCALP: normocephalic and atraumatic Eye: COMMON NORMALS: Equal, round and reactive pupils present and EOMs intact bilaterally PUPIL: Yes Equal, round and reactive pupils present Neck/C-Spine: COMMON NORMALS: full ROM, no lymphadenopathy, supple, no menin geal signs and No carotid bruits Lymph: LYMPHATIC: no lymphadenopathy noted Resp: COMMON NORMALS: normal respiratory effort, No retractions and clear to auscultation bilaterally AUSCULTATION: clear to auscultation bilaterally Cardio: COMMON NORMALS: S1 normal heart sound present, S2 normal heart sound present and Peripheral pulses 2+ throughout HEART SOUNDS: S1 normal heart sound present and S2 normal heart sound present PERIPHERAL PULSES: Peripheral pulses 2+ throughout GI: COMMON NORMALS: Normal to inspection, nondistended, normoactive bowel sounds present, Soft to palpation and non-tender PALPATION: Yes Soft to palpation : COMMON NORMALS: Yes no CVA tenderness BLADDER/KIDNEY EXAM: Yes no CVA tenderness Back/Pelvis: COMMON NORMALS: no CVA tenderness and thoracic and lumbar spine normal to inspection Extremity: COMMON NORMALS: normal to inspection, full ROM and capillary refill normal Neuro: COMMON NORMALS: patient oriented x3, CN's II-XII intact bilaterally, moves all extremities, no focal motor deficits, no sensory deficits noted, deep tendon reflexes 2+ bilaterally and gait normal SENSORIUM/ORIENTATION: Yes alert MENINGEAL SIGNS: Yes no meningeal signs Course Vital Signs: Vital signs: Vital Signs Temperature 97.9 F 03/03/23 13:32 Pulse Rate 70 03/03/23 14:58 Respiratory Rate 16 03/03/23 14:58 Blood Pressure 141/103 03/03/23 14:58 Pulse Oximetry 94 03/03/23 14:58 Oxygen Delivery Me thod Room Air 03/03/23 14:58 MDM - Extremity (Nontraumatic) Medical Decision Making Physical exam completed and documented, given the patient's recent visit to the urgent care where he received a corticosteroid injection I will not provide him any corticosteroid injections today. I will provide him Toradol intramuscular injection as well as a muscle relaxer Norflex to help ease his muscle spasm. He has no neurological deficits that I can appreciate at present. I will provide him a prescription of muscle relaxer at the time of discharge as well as discharge instructions to include stretching of the upper extremities. I requested he follow-up with his primary care provider for additional evaluation and treatment. Medical Records I reviewed the patient's medical records. Discharge Plan Discharge Patient Disposition: Home Clinical Impression: Trapezius muscle spasm, Cervical radiculitis Condition: Stable Prescriptions: New cyclobenzaprine 10 mg tablet 10 mg PO Q8H Qty: 20 0RF prednisone 20 mg tablet 40 mg PO DAILY Qty: 10 0RF No Action albuterol sulfate [ProAir HFA] 90 mcg/actuation HFA aerosol inhaler 2 puff inhalation Q6H PRN (Reason: Shortness Of Breath Or Wheezing) amlodipine-benazepril [Lotrel] 5-20 mg capsule 1 cap PO DAILY Anoro Ellipta 62.5-25 mcg/actuation blister with device 1 inh INHALATION DAILY [id number]-[id number] 50-325-40 mg tablet 1 tab PO Q6H PRN (Reason: Migraine Headache) venlafaxine 75 mg Capsule,Extended Release 24hr 150 mg PO DAILY 30 Days Qty: 60 1RF prazosin 2 mg capsule 2 mg PO QPM Qty: 30 1RF pantoprazole 40 mg tablet,delayed release (DR/EC) 40 mg PO DAILY levothyroxine 150 mcg tablet 150 mcg PO DAILY Discharge Orders: Discharge ED (Routine); Ordered 03/03/23 Ordered By: Tristan Louis Referrals: Elizabeth Menendez MD [Primary Care Provider] - Patient Instructions: Opioid Safety, Pain Management Coding Level of Care Code ED Building Dismantler for Brad Doshi
[2023-03-03 14:58] VITALS: BP 141/103; PULSE 70; RESP 16; O2SAT 94
[2023-03-03] MEDS: ketorolac 60 mg/2 mL INJ IM (15:06)
[2023-03-03] MEDS: orphenadrine 30 mg/mL Inj 2 mL 60 MG IM (15:06)
[2023-03-03] MEDS: HYDROcodone-acetaminophen 5-325 mg Tablet 1 TAB PO (15:06)
== END 2023-03-03 15:19 | disposition home or self-care (01) ==
PROVIDERS: Emergency Provider Internal Medicine; PCP Family Medicine
DX: M62.838 Other muscle spasm (principal); M54.12 Radiculopathy, cervical region; J44.9 Chronic obstructive pulmonary disease, unspecified; E78.5 Hyperlipidemia, unspecified; I10 Essential (primary) hypertension; Z87.891 Personal history of nicotine dependence
CPT/HCPCS: 96372; 99284; J1885; J2360

== ENCOUNTER 2023-06-23 10:14 | Emergency (ER) | payer OTHER, SELFPAY ==
[2023-06-23 10:24] VITALS: BP 144/96; PULSE 60; RESP 18; TEMP 36.7; O2SAT 97; BMI 31.3
--- NOTE | 2023-06-23 10:29 | XRR_ITS ---
PROCEDURE INFORMATION: Exam: XR Right Shoulder Exam date and time: 06/23/2023 10:39 AM Age: 58 years old Clinical indication: Pain; Shoulder; Right; Additional info: Pain no trauma TECHNIQUE: Imaging protocol: Radiologic exam of the right shoulder. Views: 2 or more views. COMPARISON: CT cervical spin wo con* [id number] 07/20/2022 1:40 PM FINDINGS: Bones/joints: Normal. Soft tissues: Normal. XR/XR shoulder RT min 2V* [id number] IMPRESSION: No acute findings.
--- NOTE | 2023-06-23 10:30 | W.ED.EXTPRO ---
HPI - Extremity Problem General: Chief complaint: Extremity Problem,Nontraumatic Stated complaint: right shoulder pain Time Seen by Provider: 06/23/23 10:21 History of Present Illness: Patient presents to the ER today complaining of right shoulder pain also tingling all the way down to his right fingertips. Patient denies any radiation of the pain to the neck. Patient states mobilizing his arm helps decrease the pain however patient does have complete range of motion he just has more pain when he completes this. Patient denies any recent trauma. 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 He hurt his right shoulder and neck area about 3 months ago but has improved back to normal since then. Patient has no known inciting event or trauma that started this episode. Review of Systems General: Reports: 10 or more systems reviewed and unremarkable except in HPI and below PFSH ED PFSH: Medical History COPD (chronic obstructive pulmonary disease) Erectile dysfunction Hyperlipidemia Hypertension Hypothyroidism Low testosterone Family History Mother , AT AGE 69 LUNG CANCER/KIDNEY/BRAIN TUMOR Cancer Father CAD (coronary artery disease) Other Diabetes Social History Smoking and tobacco/nicotine status: former use of tobacco/nicotine Alcohol intake: current Alcohol intake frequency: few times a month Marital status: Current occupational status: employed Physical Exam Const: COMMON NORMALS: no acute distress, average body habitus, patient oriented x3, no limitations, healthy appearing, alert and well nourished HENMT: COMMON NORMALS: normocephalic, atraumatic, hearing grossly normal bilaterally, external ears normal, Normal external nose present, moist oral mucous membranes and oropharynx normal HEAD & SCALP: normocephalic and atraumatic NOSE: Normal external nose present EXTERNAL EAR: Yes external ears normal Neck/C-Spine: COMMON NORMALS: full ROM, no lymphadenopathy, supple, no meningeal signs, no JVD and Thyroid normal THYROID: Thyroid normal Chest: COMMONS NORMALS: normal inspection of the chest and normal palpation of entire chest wall Resp: COMMON NORMALS: normal respiratory effort, No retractions, No use of accessory muscles and clear to auscultation bilaterally AUSCULTATION: clear to auscultation bilaterally Cardio: COMMON NORMALS: no JVD, regular rate, regular rhythm, S1 normal heart sound present, S2 normal heart sound present, No gallops present (Cardio), No clicks present (Cardio), No murmurs present (Cardio) and No rub (Cardio) RATE: regular rate RHYTHM: regular rhythm HEART SOUNDS: S1 normal heart sound present and S2 normal heart sound present GI: COMMON NORMALS: Normal to inspection, nondistended, normoactive bowel sounds present, Soft to palpation, non-tender, No hepatosplenomegaly present and no masses PALPATION: Yes Soft to palpation and Yes No hepatosplenomegaly present Extremity: NARRATIVE EXTREMITY EXAM: Generalized pain with palpation over right shoulder region. No overt deformity crepitus pinpoint tenderness. Neuro: COMMON NORMALS: patient oriented x3 SENSORIUM/ORIENTATION: Yes alert MENINGEAL SIGNS: Yes no meningeal signs Course Vital Signs: Vital signs: Vital Signs Temperature 98.1 F 06/23/23 10:24 Pulse Rate 60 06/23/23 12:11 Respiratory Rate 16 06/23/23 12:11 Blood Pressure 144/96 06/23/23 12:11 Pulse Oximetry 96 06/23/23 12:11 Oxygen Delivery Me thod Room Air 06/23/23 10:37 MDM - Extremity (Nontraumatic) Medical Decision Making Patient is no known trauma cause his shoulder pain. Patient will be placed in a sling and given prednisone to take for the next 5 days. X-ray was read off as negative by radiology. Patient should follow-up with his PCP in approximately 7 to 10 days for further evaluation and treatment. Differential Diagnosis Unlikely herpes zoster, gout, cellulitis, superficial thrombophlebitis, deep venous thrombosis of upper extremity, lower extremity edema or deep vein thrombosis of lower extremity Medical Records I reviewed the patient's medical records. Lab Data I reviewed the patient's lab results. Radiology Impressions Shoulder X-Ray 06/23/23 10:29 IMPRESSION: No acute findings. All radiology interpretation(s) finalized by discharge Discharge Plan Discharge Patient Disposition: Home Clinical Impression: Acute pain of right shoulder Condition: Stable Prescriptions: New prednisone 50 mg tablet 50 mg PO DAILY Qty: 5 0RF cyclobenzaprine 5 mg tablet 5 mg PO Q8H Qty: 14 0RF No Action albuterol sulfate [ProAir HFA] 90 mcg/actuation HFA aerosol inhaler 2 puff inhalation Q6H PRN (Reason: Shortness Of Breath Or Wheezing) amlodipine-benazepril [Lotrel] 5-20 mg capsule 1 cap PO DAILY Anoro Ellipta 62.5-25 mcg/actuation blister with device 1 inh INHALATION DAILY [id number]-[id number] 50-325-40 mg tablet 1 tab PO Q6H PRN (Reason: Migraine Headache) venlafaxine 75 mg Capsule,Extended Release 24hr 150 mg PO DAILY 30 Days Qty: 60 1RF prazosin 2 mg capsule 2 mg PO QPM Qty: 30 1RF naltrexone 50 mg Tablet 50 mg PO DAILY pantoprazole 40 mg tablet,delayed release (DR/EC) 40 mg PO DAILY levothyroxine 150 mcg tablet 150 mcg PO DAILY Discharge Orders: Discharge ED (Routine); Ordered 06/23/23 Ordered By: Gulshan Cobos Referrals: Elizabeth Menendez MD [Primary Care Provider] - 1 week Patient Instructions: Shoulder Pain (ED) Activity Restrictions/Additional Instructions: please take all your medicine as prescribed. Please follow-up with your family practice physician within the next 7 to 10 days for further evaluation and treatment as needed. Coding Level of Care Code ED Reconciliation Accountant for Brad Doshi
[2023-06-23 10:37] VITALS: BP 144/96; PULSE 60; RESP 16; O2SAT 96
--- NOTE | 2023-06-23 11:10 | PC.PHAR ---
PT IS [facility] (CL[facility] ON WEE[facility]DS). PT WAS ABLE TO GO OVER MEDICATIONS BUT HAS A NEW INHALER OTHER THAN THE ANORO AND HE STATES HE HAS NEW RX FOR ALCOHOL ABUSE, POSSIBLY NALTREXONE. UNABLE TO VERIFY THOSE MEDICATIONS. 06/23/23
[2023-06-23] MEDS: dexamethasone 10 mg/mL INJ IM (11:57)
[2023-06-23 12:11] VITALS: BP 144/96; PULSE 60; RESP 16; O2SAT 96
== END 2023-06-23 12:19 | disposition home or self-care (01) ==
PROVIDERS: Emergency Provider Emergency Medicine; PCP Family Medicine
DX: M25.511 Pain in right shoulder (principal); Z87.891 Personal history of nicotine dependence; J44.9 Chronic obstructive pulmonary disease, unspecified; E78.5 Hyperlipidemia, unspecified; I10 Essential (primary) hypertension
CPT/HCPCS: 73030; 96372; 99284; J1100

== ENCOUNTER 2023-07-10 06:55 | Outpatient (CLI) | payer OTHER, SELFPAY ==
[2023-07-10 07:18] VITALS: PULSE 94; RESP 18; O2SAT 99
[2023-07-10 07:23] VITALS: PULSE 99
[2023-07-10] MEDS: albuterol 2.5 mg/3 mL Neb INHALATION (08:17)
== END 2023-07-10 06:56 | disposition home or self-care (01) ==
LOC: RT 06:57
PROVIDERS: PCP Family Medicine; Visit Provider Family Medicine
DX: J44.9 Chronic obstructive pulmonary disease, unspecified (principal); R94.2 Abnormal results of pulmonary function studies
CPT/HCPCS: 94060; 94726; 94729; J7613

== ENCOUNTER 2023-12-20 20:00 | Outpatient (CLI) | payer OTHER, SELFPAY | END 2023-12-20 20:01 | disposition home or self-care (01) | LOC: SLEEP 12-21 04:15 | PROVIDERS: PCP Family Medicine; Visit Provider Family Medicine | DX: G47.33 Obstructive sleep apnea (adult) (pediatric) (principal); G47.36 Sleep related hypoventilation in conditions classified elsewhere | CPT/HCPCS: 95811 ==

== ENCOUNTER 2024-07-01 13:45 | Outpatient (CLI) | payer OTHER, SELFPAY | END 2024-07-01 13:46 | disposition home or self-care (01) | LOC: RT 13:47 | PROVIDERS: PCP Family Medicine; Visit Provider Family Medicine | DX: J44.9 Chronic obstructive pulmonary disease, unspecified (principal) | CPT/HCPCS: 94010; 94726; 94729 ==